=== PATIENT | male | born 1955 | race Caucasian/White ===

== ENCOUNTER → 2020-05-01 | Outpatient (CLI) | payer OTHER | LOC: KOH-I 14:39 | DX: M54.2 Cervicalgia (principal); M54.5 Low back pain; M47.812 Spondylosis without myelopathy or radiculopathy, cervical region; M47.816 Spondylosis without myelopathy or radiculopathy, lumbar region | CPT/HCPCS: 72050; 72110 ==

== ENCOUNTER → 2020-06-03 | Outpatient (CLI) | payer OTHER | LOC: KOH-I 14:31 | DX: M79.671 Pain in right foot (principal); M25.561 Pain in right knee; M25.571 Pain in right ankle and joints of right foot; S82.64XA Nondisplaced fracture of lateral malleolus of right fibula, initial encounter for closed fracture; W19.XXXA Unspecified fall, initial encounter | CPT/HCPCS: 73562; 73610; 73630 ==

== ENCOUNTER → 2020-06-04 | Outpatient (CLI) | payer OTHER | LOC: ECHO 09:00 | DX: I11.9 Hypertensive heart disease without heart failure (principal); R06.02 Shortness of breath; I08.0 Rheumatic disorders of both mitral and aortic valves | CPT/HCPCS: ECHO; 93306 ==

== ENCOUNTER → 2020-06-25 | Outpatient (CLI) | payer OTHER | LOC: KOH-I 10:47 | DX: M54.6 Pain in thoracic spine (principal); M54.5 Low back pain; S82.64XD Nondisplaced fracture of lateral malleolus of right fibula, subsequent encounter for closed fracture with routine healing; M43.8X4 Other specified deforming dorsopathies, thoracic region; M48.04 Spinal stenosis, thoracic region; M48.061 Spinal stenosis, lumbar region without neurogenic claudication; M47.816 Spondylosis without myelopathy or radiculopathy, lumbar region; K59.00 Constipation, unspecified; X58.XXXD Exposure to other specified factors, subsequent encounter | CPT/HCPCS: 72070; 72100; 73610 ==

== ENCOUNTER 2020-12-12 17:01 | Emergency (ER) | payer MEDICARE, OTHER ==
[2020-12-12 18:15] LABS: HEMOGLOBIN 13.5 gm/dl (14.0-17.5); RED BLOOD COUNT 4.46 M/UL (4.20-5.50); WHITE BLOOD COUNT 5.1 K/UL (4.5-11.0)
[2020-12-12 18:45] LABS: BUN/CREATININE RATIO 16 (0-10)
== END 2020-12-12 22:55 | disposition home or self-care (01) ==
LOC: ER1 17:01
PROVIDERS: Physician Assistant
DX: U07.1 COVID-19 (principal); E87.5 Hyperkalemia; R35.0 Frequency of micturition; I12.9 Hypertensive chronic kidney disease with stage 1 through stage 4 chronic kidney disease, or unspecified chronic kidney disease; N18.9 Chronic kidney disease, unspecified; Z88.0 Allergy status to penicillin; Z90.49 Acquired absence of other specified parts of digestive tract
CPT/HCPCS: 80053; 82550; 82553; 83874; 84484; 85025; 93005; 99285; U0002